=== PATIENT | male | born 1970 | race Caucasian/White ===

== ENCOUNTER → 2016-06-07 | Outpatient (CLI) | payer MEDICAID ==
[~2016-06-07] MED LIST: FLEXERIL10 MG PO; LORTAB 5/500 501 TAB PO; MEDROL 4MG. DOSE4 MG PO; PERCOCET 5/3251 EACH PO
[2016-06-07 14:08] LABS: BUN 11 mg/dL (7-18)
[2016-06-07 14:14] LABS: GFR (ESTIMATED) 92 ML/MIN (>60)
[2016-06-07 14:34] LABS: LYMPH # 0.9 K/mm3 (0.7-4.5)
[2016-06-07 15:10] LABS: HEMOGLOBIN 12.6 g/dL (14.1-18.0)
== END ==
LOC: CARL-LAB 11:54
PROVIDERS: Internal Medicine Infectious Disease
DX: M86.10 Other acute osteomyelitis, unspecified site (principal)

== ENCOUNTER → 2016-08-06 | Outpatient (CLI) | payer MEDICAID ==
[2016-08-06 17:48] LABS: AMPHETAMINES/METAMPHETAMINES NEGATIVE ng/mL (<1000)
== END ==
LOC: LAB 17:24
PROVIDERS: Nurse Practitioner Family
DX: F41.9 Anxiety disorder, unspecified (principal)
CPT/HCPCS: G0480